=== PATIENT | male | born 1950 ===

== ENCOUNTER → 2020-04-04 | Outpatient (CLI) | payer MEDICARE, OTHER | LOC: CARD 11:00 | PROVIDERS: ATTEND Internal Medicine Interventional Cardiology | DX: I48.0 Paroxysmal atrial fibrillation (principal); I45.6 Pre-excitation syndrome; Z86.79 Personal history of other diseases of the circulatory system | CPT/HCPCS: 93306 ==

== ENCOUNTER 2023-03-15 13:25 | Observation (INO) | payer MEDICARE, OTHER ==
[~2023-03-15] VITALS: Ht 177.8 cm; Wt 70.9 kg
[2023-03-15] MEDS ORDERED: ACETAMINOPHEN 325 MG TABLET PO PRN (16:00)
[2023-03-15] MEDS ORDERED: diphenhydrAMINE 25 MG TABLET PO PRN (16:00)
[2023-03-15] MEDS ORDERED: ONDANSETRON 4 MG/2 ML (SDV) Z0FRAN IV PRN (16:00)
[2023-03-15] MEDS ORDERED: oxyCODONE IMMEDIATE RELEASE 5 MG TABLET PO PRN (16:00)
[2023-03-15] MEDS ORDERED: polyethylene glycoL POWDER 17 GM (MIRALAX) PACK PO PRN (16:00)
[2023-03-15] MEDS ORDERED: ANTACID SUSPENSION 30 ML UDC PO PRN (16:00)
[2023-03-15] MEDS ORDERED: MILK OF MAGNESIA 400 MG/5 ML 30 ML UDC PO PRN (16:00)
[2023-03-15] MEDS ORDERED: BISACODYL 10 MG SUPPOSITORY PR PRN (16:00)
[2023-03-15] MEDS ORDERED: ONDANSETRON 4 MG (ZOFRAN) ORAL DISSOLVE TAB PO PRN (16:00)
[2023-03-15] MEDS ORDERED: HYDROmorphone INJECTION 2 MG/ML VIAL IV PRN (16:00)
[2023-03-15] MEDS ORDERED: CALCIUM CARBONATE 500 MG CHEW TABLET PO PRN (16:00)
[2023-03-15] MEDS ORDERED: NS IV 500 ML 500 ML IV PRN (16:00)
[2023-03-15] MEDS ORDERED: diphenhydrAMINE INJ 50 MG/ML VIAL IVP PRN (16:00)
[2023-03-15] MEDS ORDERED: MELATONIN 3 MG TABLET PO PRN (16:00)
[2023-03-15] MEDS ORDERED: LACTULOSE SYRUP 10GM/15ML 30ML UDC PO PRN (16:00)
[2023-03-15] MEDS: inSUlin ASPART 1 UNIT/0.01 ML (PER UNIT) SC SCH ×2 (16:18→21:08)
[2023-03-15] MEDS: NS IV 1000 ML 1,000 ML IV SCH (17:29)
[2023-03-15] MEDS: ENOXAPARIN 40 MG/0.4 ML SYRINGE SC SCH (17:29)
--- NOTE | 2023-03-15 17:55 | Diagnostic Imaging Report ---
PROCEDURE: US carotid duplex, bilateral. TECHNIQUE: Multiple real-time grayscale images were obtained over the carotid arteries in various projections, bilaterally. Additional spectral analysis and color Doppler duplex images were also obtained. INDICATION: Transient ischemic attack. Parameters based on the consensus panel Torres-Scale and Doppler ultrasound criteria published June 2003, Radiology, Volume 229. DOPPLER (peak systolic velocity M/S Right Left CCA 0.86 0.85 ICA Proximal 0.59 0.70 ICA Mid 0.59 0.65 ICA Distal 0.70 0.73 RATIO 0.81 0.97 ECA 0.85 0.95 VERT 0.28 0.41 FINDINGS: Minimal plaque is seen within the distal common carotid arteries bilaterally. Waveforms are normal. There is normal antegrade flow within both vertebral arteries. IMPRESSION: No hemodynamically significant stenosis of the bilateral internal carotid arteries by velocity or ratio criteria. Dictated by: Dictated on workstation # [id number]
[2023-03-15] MEDS ORDERED: NS 100 ML (IVPB) BAG IV ONE (18:00)
[2023-03-15] MEDS ORDERED: IOHEXOL 350 MG/ML 100 ML (OMNIPAQUE 350) VIAL IV ONE (18:00)
--- NOTE | 2023-03-15 18:19 | History & Physical ---
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 He had amnesia and increased confusion so he presented to [facility] ER in stable condition and work-up ensued. CT scan was normal for any acute abnormality and the rest of his blood work showed no evidence of source for confusion and amnesia so the decision was made to transfer to [facility] for CT angiogram to rule out large thrombus and MRI. Currently he is doing much better but he is having still some mild confusion. Patient was placed on Plavix and aspirin per protocol. Carotid ultrasound showed no evidence of stenosis. CT angiogram showed no evidence of large thr ombus. He will be monitored in the ICU. Cardiology did evaluate him due to history of ablation and pacemaker defibrillator placement 2 years ago at . 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 Source: patient, family, RN/MD, old records Exam Limitations: no limitations Date Seen 03/15/23 Time Seen by a Provider: 19:00 Attending Physician Seferino Olson DO PCP Admitting Physician: Deya Bailon DO Attending Physician: Deya Bailon DO Referring Physician Date of Admission Mar 15, 2023 at 15:53 Home Medications & Allergies Home Medications Reviewed patient Home Medication Reconciliation performed by pharmacy medication reconciliations hearing health technician and/or nursing. Patients Allergies have been reviewed. Allergies Allergies Coded Allergies No Allergy Information Available (Unverified03/15/23) Past Gqmspns-Qddsqr-Qudqou Hx Past Med/Social Hx: Reviewed Nursing Past Med/Soc Hx, Reviewed and Corrections made Patient Social History Marrital Status: Employed/Student: employed (Park Manager) Alcohol Use: Denies Use Smoking Status: Former Smoker Past Medical History Surgeries: Pacemaker WPW status post ablation Review of Systems Constitutional: see HPI, dizziness, malaise, weakness EENTM: no symptoms reported Respiratory: no symptoms reported Cardiovascular: no symptoms reported Gastrointestinal: no symptoms reported Genitourinary: no symptoms reported Musculoskeletal: no symptoms reported Skin: no symptoms reported Psychiatric/Neurological: Other (Confusion and poor recall) Physical Exam Physical Exam Vital Signs Vital Signs - First Documented 03/15/23 21:38 FiO2 21 Capillary Refill : Height, Weight, BMI Height: '" Weight: lbs. oz. kg; 22.23 BMI Method: General Appearance: No Apparent Distress, WD/WN Eyes: Bilateral Eye Normal Inspection, Bilateral Eye PERRL HEENT: PERRL/EOMI, Normal ENT Inspection, Pharynx Normal Neck: Full Range of Motion, Normal Inspection, Non Tender, Supple, Carotid Bruit Respiratory: Chest Non Tender, Lungs Clear, Normal Breath Sounds, No Accessory Muscle Use, No Respiratory Distress Cardiovascular: Regular Rate, Rhythm, No Edema, No Gallop, No JVD, No Murmur, Normal Peripheral Pulses Gastrointestinal: Normal Bowel Sounds, No Organomegaly, No Pulsatile Mass, Non Tender, Soft Back: Normal Inspection, No CVA Tenderness, No Vertebral Tenderness Extremity: Normal Capillary Refill, Normal Inspection, Normal Range of Motion, Non Tender, No Calf Tenderness, No Pedal Edema Neurologic/Psychiatric: Alert, Oriented x3, No Motor/Sensory Deficits, Normal Mood/Affect, neonatal doctor II-XII Norm as Tested, Other ( poor recall) Skin: Normal Color, Warm/Dry Lymphatic: No Adenopathy Results Results/Procedures Labs Laboratory Tests 03/16/23 04:32 Patient resulted labs reviewed. Assessment/Plan Admission Diagnosis Assessment: Acute onset of confusion and amnesia due to TIA versus CVA History of ablation and pacemaker defibrillator placement 2 years ago due to WPW managed to [employer] Plan: Supportive care Plavix and aspirin Plavix and aspirinCarotid, CT angiogram, MRI, echo, telemetry, rehab eval Admission Status: Observation DEYA BAILON DO Mar 15, 2023 18:19
--- NOTE | 2023-03-15 18:28 | Tele-ICU Progress Note ---
Progress Note (Tele-ICU Physician , consultation as per request of PCP Service provided via interactive audio and video telecommunications E-CARE system to a patient admitted to ICU bed in [facility]. Available chart/ vitals / labs / Images reviewed H&P is from ER notes Patient's information available about PMH, Shx, Fhx allergy reviewed inEMR. ROS as per chart and RN report Now in ICU, hemodynamically stable Video assessment done using teleICU camera, rest of exam as per RN no labs on EMR yest Hospital course: (03/15) 72y/o M admitted with TIA A/P TIA - plavix strarted cards consulted , ECHO and CTA ordered , carotids US - no stenosis monitor BP neurocheck h/o afib in past - as per cards - not on AC now Plans in collaboration with bedside consultants and IM MDs. Discussed with RN to reach out if any questions or concerns A total of 10 minutes of critical care time was devoted to this patient today, required to treat and/or prevent further deterioration of critical care condition ( as above ) . I am remotely monitoring this patient from another state. I am unable to do the bedside exam, and history/physical and pertinent information is taken from other notes in the computer and bedside staff. . Focused Exam Height, Weight, BMI Height: '" Weight: lbs. oz. kg; 22.23 BMI Method: AMANDA GRANT MD Mar 15, 2023 18:27
--- NOTE | 2023-03-15 19:23 | Diagnostic Imaging Report ---
EXAMINATION: CT angiography head and neck with and without contrast. TECHNIQUE: After intravenous administration of contrast, thin section axial CT angiography of the head and neck was performed. Source data was reformatted into 3D MIP projections. All CT scans use one or more of the following dose optimizing techniques: automated exposure control, MA and/or KvP adjustment based on a patient size and exam type, or iterative reconstruction. Any measurements of internal carotid artery stenosis are provided according to NASCET criteria. CT angiogram was post-processed using AI detection software to include quantitative measurements of cerebral blood flow and automated results notification to the stroke and/or neurointerventional team. HISTORY: History of skin cancer, stroke. COMPARISON: None available. FINDINGS: The carotid arteries are normal without stenosis. Vertebral arteries are normal without stenosis. Intracranial internal carotid arteries are normal. The middle cerebral arteries are normal. The posterior cerebral arteries are normal. The anterior cerebral arteries are normal. There is no large vessel occlusion. No aneurysm or vascular malformation is seen. The cat-white matter differentiation is normal. No mass effect or midline shift. The ventricles are normal in size and configuration. Basilar cisterns are patent. There are no intra- or extra-axial fluid collections. There is no intracranial hemorrhage. The orbits are normal. Paranasal sinuses are normal. Mastoid air cells are clear. No soft tissue abnormality is seen. No osseus lesions or fractures are seen. No lymphadenopathy is seen in the neck. The muscles of the neck are normal. Fascial planes are preserved and the deep spaces of the neck are normal. Included lung apices demonstrate biapical scarring. No osseous lesions or fractures are seen. IMPRESSION: 1. Normal vasculature in the head and neck without large vessel occlusion. Dictated by: Dictated on workstation # [id number]
--- NOTE | 2023-03-15 19:24 | Consultation-Cardiology ---
HPI-Cardiology Cardiology Consultation: Date of Consultation 03/15/23 Time Seen by a Provider: 18:15 Date of Admission Attending Physician Seferino Olson DO Admitting Physician Admitting Physician: Deya Bailon DO Attending Physician: Deya Bailon DO Consulting Physician KALLIE FARFAN MD, MA, FACP, FACC, [facility], [facility] Physician requesting consult: Dr Bailon HPI: Chief Complaint: Reason for Card consult: H/o cardiac arrhythmia 72 [address] man admitted to Dr Bailon's service earlier today with several hours of confusion, forgetfulness, and disorientation Denies cp or palp or shortness of breath or leg swelling. Denies n/v/d. Denies focal weakness. Denies vision loss Review of Systems-Cardiology Review of Systems Constitutional: No malaise, No tiredness, No weight loss, No weight gain Eyes: No vision change Ears/Nose/Throat: No ear discharge, No nasal drainage, No recent hearing loss Respiratory: As described under HPI Cardiovascular: As described under HPI Gastrointestinal: No diarrhea, No nausea Genitourinary: No dysuria, No hematuria, No urine frequency changes Musculoskeletal: No back pain, No joint pain Skin: No rash, No ulcerations Psychiatric/Neurological: As described under HPI; No seizure, No focal weakness, No syncope Hematologic: No bleeding abnormalities CMN-Hctmux-Uenlaf Hx Patient Social History Smoking Status: Former Smoker Alcohol Use?: Yes Pt feels they are or have been: No Past Medical History PMH As described under Assessment. Family Medical History Family Medical History: He does not report fam h/o early CAD or SCD Allergies and Home Medications Allergies Coded Allergies: No Allergy Information Available (Unverified , 03/15/23) Patient Home Medication List Home Medication List Reviewed: Yes Physical Exam-Cardiology Physical Exam Vital Signs/I&O 03/15/23 03/15/23 03/15/23 03/15/23 16:00 16:00 16:37 17:00 Temp 37.1 Pulse 61 59 59 Resp 18 16 B/P (MAP) 145/94 (111) 137/87 (104) Pulse Ox 99 99 O2 Delivery Room Air Room Air Room Air Capillary Refill : Constitutional: AAO x 3, well-developed, well-nourished HEENT: EOMI, hearing is well preserved; No xanthelasmas are seen Neck: carotid pulses are 2 + bilaterally, with good upstrokes Respiratory: No accessory muscle use; chest expansion is symmetric, chest is bilaterally symmetric, other (good, bilateral air entry) Cardiovascular: No regular rate-rhythm; S1 and S2, systolic murmur (soft ARPITA at card base) Gastrointestinal: No tender; soft; No guarding, No rebound; audible bowel sounds Extremities: No clubbing, No cyanosis, No significant edema Neurologic/Psychiatric: oriented x 3, other (moves all limbs equally) Skin: normal color, warm/dry; No cyanosis, No cool, No diaphoresis, No rash on exposed areas, No ulcerations on exposed areas A/P-Cardiology Assessment/Admission Diagnosis Mental status change, acute - managed by Dr Bailon H/o cardiac arrhythmia - 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 - H/o ablation of another fast heart rhythm in a few years ago (pt and family do not know any details) - H/o pacemaker defibrillator in a few years ago (pt and family do not know a ny details) - No h/o cardiomyopathy or cor stents or cor bypass surgery, per patient report Discussion and Recomendations * We have advised pt and his family to bring all his meds and we recommend that any previous cardiac regimen be continued (Dr Bailon managing meds) * We are trying to obtain 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
[2023-03-15] MEDS ORDERED: ASPIRIN enteric coated 81MG TABLET PO ONE (21:00)
[2023-03-15] MEDS: CLOPIDOGREL 75 MG TABLET PO SCH (21:23)
[2023-03-15 21:38] VITALS: BP 143/113
[2023-03-15] MEDS: DOCUSATE SODIUM 100 MG CAPSULE PO SCH (23:38)
[2023-03-15] MEDS: SENNOSIDES 8.6 MG (SENOKOT) TAB PO SCH (23:39)
[2023-03-16 05:08] LABS: BASOPHILS # (AUTO) 0.1 10^3/uL (0.0-0.1); BASOPHILS % (AUTO) 1 % (0-10); EOSINOPHILS # (AUTO) 0.1 10^3/uL (0.0-0.3); EOSINOPHILS % (AUTO) 1 % (0-10); HEMATOCRIT 39 % (40-54); HEMOGLOBIN 13.7 g/dL (13.3-17.7); LYMPHOCYTES # (AUTO) 1.6 10^3/uL (1.0-4.0); LYMPHOCYTES % (AUTO) 30 % (12-44); MEAN CORPUSCULAR HEMOGLOBIN 34 pg (25-34); MEAN CORPUSCULAR HGB CONC 35 g/dL (32-36); MEAN CORPUSCULAR VOLUME 97 fL (80-99); MEAN PLATELET VOLUME 12.6 fL (9.0-12.2); MONOCYTES # (AUTO) 0.5 10^3/uL (0.0-1.0); MONOCYTES % (AUTO) 10 % (0-12); NEUTROPHILS % (AUTO) 58 % (42-75); WHITE BLOOD COUNT 5.3 10^3/uL (4.3-11.0)
[2023-03-16 05:25] LABS: ALBUMIN 3.5 GM/DL (3.2-4.5); BILIRUBIN,TOTAL 1.7 MG/DL (0.1-1.0); CALCIUM 8.5 MG/DL (8.5-10.1); CREATININE SERUM 0.82 MG/DL (0.60-1.30); MAGNESIUM 1.8 MG/DL (1.6-2.4); PHOSPHORUS 2.8 MG/DL (2.3-4.7); POTASSIUM 3.6 MMOL/L (3.6-5.0); TOTAL PROTEIN 5.2 GM/DL (6.4-8.2)
[2023-03-16 05:43] LABS: PLATELET COUNT 104 10^3/uL (130-400); SMEAR SCAN COMMENT YES
[2023-03-16] MEDS ORDERED: MAGNESIUM 1 GM/100 ML IVPB 100 ML IV SCH (06:00)
[2023-03-16] MEDS ORDERED: POTASSIUM CHLORIDE 20 MEQ TABLET PO SCH (06:00)
[2023-03-16] MEDS ORDERED: POTASSIUM CL 10MEQ/50ML IVPB 50 ML IV SCH (06:00)
[2023-03-16] MEDS: inSUlin ASPART 1 UNIT/0.01 ML (PER UNIT) SC SCH (06:33)
[2023-03-16] MEDS: MAGNESIUM 1 GM/100 ML IVPB 100 ML IV SCH ×2 (06:45→08:54)
[2023-03-16] MEDS: NS IV 1000 ML 1,000 ML IV SCH (06:45)
--- NOTE | 2023-03-16 08:36 | Physical Therapy Evaluation ---
PT Evaluation-General Medical Diagnosis Admission Date Mar 15, 2023 at 15:53 Medical Diagnosis: TIA Onset Date: Mar 15, 2023 Therapy Diagnosis Therapy Diagnosis: debility Precautions Precautions/Isolations: Fall Prevention, Standard Precautions Referral Physician: Adamaris Reason for Referral: Evaluation/Treatment Medical History Additional Medical History pacemaker Current History ER secondary to confusion Reviewed History: Yes Social History Home: Single Level Current Living Status: Spouse Prior Prior Level of Function SCALE: Activities may be completed with or without assistive devices. 6-Dmheupibgr-qxcqrga completes the activity by him/herself with no assistance from a helper. 5-Set-up or Clean-up Assistance-helper sets up or cleans up; patient completes activity. [place] assists only prior to or following the activity. 4-Supervision or Touching Assistance-helper provides verbal cues and/or touching/steadying and/or contact guard assistance as patient completes activity. Assistance may be provided throughout the activity or intermittently. 3-Partial/Moderate Assistance-helper does LESS THAN HALF the effort. [place] li fts, holds or supports trunk or limbs, but provides less than half the effort. 2-Substantial/Maximal Assistance-helper does MORE THAN HALF the effort. [place] lifts or holds trunk or limbs and provides more than half the effort. 4-Jehjlgrnu-zzbptc does ALL the effort. Patient does none of the effort to complete the activity. Or, the assistance of 2 or more helpers is required for the patient to complete the activity. If activity was not attempted, code reason: 7-Patient Refused. 9-Not Applicable-not attempted and the patient did not perform the activity before the current illness, exacerbation or injury. 10-Not Attempted due to Environmental Limitations-(lack of equipment, weather restraints, etc.). 88-Not Attempted due to Medical Conditions or Safety Concerns. Bed Mobility: 6 Transfers (B,C,W/C): 6 Gait: 6 Stairs: 6 Indoor Mobility (Ambulation): Independent Stairs: Independent Prior Devices Use: None PT Evaluation-Current Subjective Patient agrees to PT. Objective Patient Orientation: Normal For Age Attachments: IV ROM/Strength ROM Lower Extremities bilateral LE WFL Strength Lower Extremities 5/5 grossly bilateral LE all planes Integumentary/Posture Bowel Incontinence: No Bladder Incontinence: No Posture WFL Neuromuscular (Tone, Coordination, Reflexes) grossly intact Sensory Vision: Functional Hearing: Functional Transfers Sit to Stand (QC): 6 Chair/Fwd-ez-Clvlu Xfer(QC): 6 Gait Mode of Locomotion: Walk Anticipated Mode of Locomotion: Walk Walk 10 feet (QC): 6 Walk 50 ft with 2 Turns(QC): 6 Distance: 50' Gait Assistive Device: None Balance Sitting Static: Normal Sitting Dynamic: Normal Standing Static: Normal Standing Dynamic: Normal Assessment/Needs Patient is currently at independent PLOF with all gross motor skills safely and does not require skilled PT intervention at this time. Rehab Potential: Good PT Plan Treatment/Plan Treatment Plan: Discontinue PT Treatment Duration: Mar 16, 2023 Frequency: 1 time per week Estimated Hrs Per Day: .25 hour per day Patient and/or Family Agrees t: Yes Time Time In: 810 Time Out: 820 DATE: Mar 16, 2023 Total Billed Treatment Time: 10 Total Billed Treatment 1 visit EVLowC 10 min EUGENIA JACKSON PT Mar 16, 2023 08:36
[2023-03-16] MEDS: CLOPIDOGREL 75 MG TABLET PO SCH (08:54)
[2023-03-16] MEDS: ASPIRIN enteric coated 81MG TABLET PO SCH (08:54)
[2023-03-16] MEDS ORDERED: CLOPIDOGREL 75 MG TABLET PO SCH (09:00)
[2023-03-16] MEDS ORDERED: ASPIRIN 325 MG TABLET PO SCH (09:00)
--- NOTE | 2023-03-16 10:08 | Progress Note - Cardiology ---
Cardiology SOAP Progress Note Objective: I&O/Vital Signs Constitutional: AAO x 3, well-developed, well-nourished Respiratory: No accessory muscle use; chest expansion is symmetric, chest is bilaterally symmetric, other (good, bilateral air entry) Cardiovascular: No regular rate-rhythm; S1 and S2, systolic murmur (soft ARPITA at card base) Gastrointestional: No tender; soft; No guarding, No rebound; audible bowel sounds Extremities: No clubbing, No cyanosis, No significant edema Neurologic/Psychiatric: oriented x 3, other (moves all limbs equally) Skin: normal color, warm/dry; No cyanosis, No cool, No diaphoresis, No rash on exposed areas, No ulcerations on exposed areas Results/Procedures: Labs Microbiology 03/15/23 MRSA Screen - Final, Complete MRSA not isolated A/P: Assessment: Mental status change, acute - managed by Dr Bailon H/o cardiac arrhythmia - 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
[2023-03-16] MEDS: DOCUSATE SODIUM 100 MG CAPSULE PO SCH ×2 (10:10→20:08)
[2023-03-16] MEDS: SENNOSIDES 8.6 MG (SENOKOT) TAB PO SCH ×2 (10:10→20:08)
--- NOTE | 2023-03-16 10:25 | Speech Therapy Progress Note ---
Therapy Progress Note Per PT: Patient is independent with all communicative-linguistic tasks. Pt currently has regular diet level. Communication WNL. Pt and nursing staff have no ST concerns at this time. Consult only on this date. DUKE SPICER Mar 16, 2023 10:25
[2023-03-16] MEDS ORDERED: LORA10TA7 PO (10:36)
[2023-03-16] MEDS ORDERED: FINA5TAB6 PO (10:36)
[2023-03-16] MEDS ORDERED: SOTA120T PO (10:36)
[2023-03-16] MEDS ORDERED: FLUT9.9S NSEACH (10:36)
[2023-03-16] MEDS ORDERED: MULT-1136 PO (10:36)
[2023-03-16] MEDS ORDERED: ATOR40TA70 PO (10:36)
[2023-03-16] MEDS ORDERED: LACT1CAP62 PO (10:36)
--- NOTE | 2023-03-16 11:07 | Progress Note ---
WEN ENRIQUEZ 03/16/23 1107: Subjective Date Seen by a Provider: Mar 16, 2023 Time Seen by a Provider: 09:10 Subjective/Events-last exam CC: TIA vs CVA HPI: 72-year-old male with h/o of WPW became confused & did not feel well yesterday. Proceeded to have amnesia and increasing confusion so presented to [place] ER. CT scan showed no acute abnormality and blood tests provided no evidence for confusion. Patient then transferred to [facility] for CT angiogram & an MRI. No large thrombus found with CT angiogram. No carotid stenosis found on carotid US. He reported no pain or weakness and was able to get up and move around a bit this morning. He was able to state name and lo cation, but was unable to give date (oriented x2). Patient will be [facility] to [facility] and further requirement of an MRI will be discussed. Patient is currently on clopidogrel & aspirin as per protocol. Review of Systems General: No Chills, No Night Sweats, No Fatigue, No Malaise HEENT: Head Aches (Headache this morning but went away with coffee); No Visual Changes, No Eye Pain, No Ear Pain, No Dysphasia, No Sinus Congestion, No Post Nasal Drip, No Sore Throat, No Other Pulmonary: No Dyspnea, No Cough, No Pleuritic Chest Pain Cardiovascular: No: Chest Pain, Palpitations, Orthopnea, Paroxysmal Noc. Dyspnea, Edema, Lt Headedness Gastrointestinal: No: Nausea, Vomiting, Abdominal Pain, Diarrhea, Constipation, Melena, Hematochezia Genitourinary: No Dysuria; Frequency; No Incontinence, No Hematuria, No Retention, No Other Musculoskeletal: No: other, neck pain, shoulder pain, arm pain, back pain, hand pain, leg pain, foot pain Neurological: Weakness (Was able to move around some this morning), Confusion (Did not know date, Oriented x2); No: Numbness, Incoordination, Change in speech, Seizures, Other Objective Exam Last Set of Vital Signs Vital Signs Date Time Temp Pulse Resp B/P (MAP) Pulse Ox O2 Delivery O2 Flow Rate FiO2 03/16/23 09:00 59 19 100 Room Air 03/16/23 07:55 36.2 03/16/23 07:16 0.00 03/15/23 21:42 21 Capillary Refill : I&O Intake and Output 03/16/23 00:00 Intake Total 925 ml Output Total 600 ml Balance 325 ml Intake Oral 925 ml Output Urine Total 600 ml Daily Weight Change No General: Alert, Cooperative, No Acute Distress, Other (Oriented x2) HEENT: Atraumatic, PERRLA, EOMI Extremities: No Clubbing, No Cyanosis Neuro: Normal Speech Psych/Mental Status: Mental Status NL, Mood NL Results Lab Laboratory Tests 03/15/23 20:30: Glucometer 102 03/16/23 04:32: White Blood Count 5.3, Red Blood Count 4.02L, Hemoglobin 13.7, Hematocrit 39L, Mean Corpuscular Volume 97, Mean Corpuscular Hemoglobin 34, Mean Corpuscular Hemoglobin Concent 35, Red Cell Distribution Width 12.1, Platelet Count 104L, Mean Platelet Volume 12.6H, Immature Granulocyte % (Auto) 0, Neutrophils (%) (Auto) 58, Lymphocytes (%) (Auto) 30, Monocytes (%) (Auto) 10, Eosinophils (%) (Auto) 1, Basophils (%) (Auto) 1, Neutrophils # (Auto) 3.0, Lymphocytes # (Auto) 1.6, Monocytes # (Auto) 0.5, Eosinophils # (Auto) 0.1, Basophils # (Auto) 0.1, Immature Granulocyte # (Auto) 0.0, Percent Immature Platelet Fraction 12.1H, Sodium Level 140, Potassium Level 3.6, Chloride Level 110H, Carbon Dioxide Level 23, Anion Gap 7, Blood Urea Nitrogen 10, Creatinine 0.82, Estimat Glomerular Filtration Rate 94, BUN/Creatinine Ratio 12, Glucose Level 89, Calcium Level 8.5, Corrected Calcium 8.9, Phosphorus Level 2.8, Magnesium Level 1.8, Total Bilirubin 1.7H, Aspartate Amino Transf (AST/SGOT) 23, Alanine Aminotransferase (ALT/SGPT) 26, Alkaline Phosphatase 55, Total Protein 5.2L, Albumin 3.5, Triglycerides Level 95, Cholesterol Level 101, LDL Cholesterol Direct 46, VLDL Cholesterol 19, HDL Cholesterol 41, Smear Scan YES 03/16/23 05:25: Glucometer 87 03/16/23 10:38: Glucometer 102 Assessment/Plan Assessment/Plan Assess & Plan/Chief Complaint Assessment: Acute onset of confusion & amnesia due to TIA vs CVA Prior ablation & pacemaker defib placement 2 years ago for WPW Plan: Continue DAPT per protocol Atorvastatin Lorazepam Move to med-surg & ambulate MRI if needed Heplock d/c IVF DEYA GUIDRY DO 03/17/2318: Supervisory-Addendum Brief Verification & Attestation Participated in pt care: history, MDM, physical Personally performed: exam, history, MDM, supervision of care Care discussed with: Medical Student Procedures: n/a Results interpretation: Verified all documentation Verification and Attestation of Medical Student E/M Service A medical student performed and documented this service in my presence. I reviewed and verified all information documented by the medical student and made modifications to such information, when appropriate. I personally performed the physical exam and medical decision making. Deya Guidry, Mar 17, 2023,05:18 WEN ENRIQUEZ Mar 16, 2023 11:07 DEYA GUIDRY DO Mar 17, 2023 05:18
--- NOTE | 2023-03-16 12:25 | Tele-ICU Progress Note ---
Subjective Date Seen by a Provider: Mar 16, 2023 Time Seen by a Provider: 12:24 Subjective/Events-last exam HPI/Events of Note (Tele-ICU Physician , Progress Note ) Service provided via interactive audio and video telecommunications E-CARE system to a patient admitted to ICU bed in [facility]. Patient is seen today due to persistent need of ICU care. Available chart/ vitals / labs / Images reviewed Video assessment done using teleICU camera, rest of exam as per RN Hospital course: (03/15) 72 y/o M admitted with TIA and AMS 03/16: A&OX3, no events overnight A/P TIA Initial NIH was 2 (confusion), today with no active issues -MRI held 2/ pacemaker -Plavix strarted -cards consulted , ECHO pending -CTA normal, carotids US - no stenosis -BP normal -neurocheck Q4 h/o afib in past - as per cards - not on AC now Plans in collaboration with bedside consultants and IM MDs. Discussed with RN to reach out if any questions or concerns A total of 10 minutes of critical care time was devoted to this patient today, required to treat and/or prevent further deterioration of critical care condition (as above). I am remotely monitoring this patient from another state. I am unable to do the bedside exam, and history/physical and pertinent information is taken from other notes in the computer and bedside staff. Sepsis Event Evaluation Height, Weight, BMI Height: '" Weight: lbs. oz. kg; 22.23 BMI Method: Exam Exam Patient acknowledged, consented, and participated in this virtual visit which was conducted using real time audio/video Vital Signs Date Time Temp Pulse Resp B/P (MAP) Pulse Ox O2 Delivery O2 Flow Rate FiO2 03/16/23 11:32 36.2 03/16/23 11:00 64 14 139/98 (112) Room Air 03/16/23 10:00 64 14 Room Air 03/16/23 10:00 55 15 Room Air 03/16/23 09:00 59 19 100 Room Air 03/16/23 08:00 97 Room Air 03/16/23 08:00 56 15 173/104 (127) 100 Room Air 03/16/23 07:55 36.2 03/16/23 07:16 98 Room Air 0.00 03/16/23 07:00 61 18 136/93 (107) 98 Room Air 03/16/23 07:00 58 03/16/23 06:00 55 11 142/77 (95) 98 Room Air 03/16/23 05:00 55 11 118/79 (95) 97 Room Air 03/16/23 04:00 98 Room Air 03/16/23 04:00 59 19 120/86 (98) 96 Room Air 03/16/23 03:00 55 11 120/82 (95) 98 Room Air 03/16/23 02:00 55 32 125/78 (94) 96 Room Air 03/16/23 01:30 98 Room Air 03/16/23 01:00 55 12 113/77 (89) 98 Room Air 03/16/23 01:00 55 03/16/23 00:14 97 Room Air 03/16/23 00:00 56 13 127/82 (97) 99 Room Air 03/15/23 23:00 55 14 119/83 (99) 97 Room Air 03/15/23 22:00 58 125/94 (104) 99 Room Air 03/15/23 21:42 21 03/15/23 21:38 59 99 21 03/15/23 21:05 60 9 136/94 (120) 99 Room Air 03/15/23 20:05 37.0 03/15/23 20:00 96 Room Air 03/15/23 20:00 57 11 143/113 (121) 100 Room Air 03/15/23 19:00 58 03/15/23 19:00 68 12 177/97 (133) 99 Room Air 03/15/23 17:00 59 16 137/87 (104) 99 Room Air 03/15/23 16:37 59 03/15/23 16:00 Room Air 03/15/23 16:00 37.1 61 18 145/94 (111) 99 Room Air I & O 03/16/23 07:00 Intake Total 925 ml Output Total 600 ml Balance 325 ml Height & Weight Height: '" Weight: lbs. oz. kg; 22.23 BMI Method: General Appearance: No Apparent Distress, WD/WN HEENT: PERRL/EOMI, Normal ENT Inspection, Pharynx Normal Neck: Full Range of Motion, Normal Inspection, Non Tender, Supple, Carotid Bruit Respiratory: Chest Non Tender, Lungs Clear, Normal Breath Sounds, No Accessory Muscle Use, No Respiratory Distress Cardiovascular: Regular Rate, Rhythm, No Edema, No Gallop, No JVD, No Murmur, Normal Peripheral Pulses Extremity: Normal Capillary Refill, Normal Inspection, Normal Range of Motion, Non Tender, No Calf Tenderness, No Pedal Edema Neurologic/Psychiatric: Alert, Oriented x3, No Motor/Sensory Deficits, Normal Mood/Affect, java web architect II-XII Norm as Tested, Other ( poor recall) Skin: Normal Color, Warm/Dry Lymphatic: No Adenopathy Results Lab Laboratory Tests 03/16/23 04:32 Assessment/Plan Assessment/Plan . SABRA GARG MD Mar 16, 2023 12:25
--- NOTE | 2023-03-16 16:07 | Progress Note - Cardiology ---
Cardiology SOAP Progress Note Subjective: No cp or palp or syncope or shortness of breath No leg swelling No n/v/d Reports improvement of memory since yesterday Objective: I&O/Vital Signs 03/16/23 03/16/23 03/16/23 03/16/23 05:00 06:00 07:00 07:00 Pulse 55 55 58 61 Resp 11 11 18 B/P (MAP) 118/79 (95) 142/77 (95) 136/93 (107) Pulse Ox 97 98 98 O2 Delivery Room Air Room Air Room Air 03/16/23 03/16/23 03/16/23 03/16/23 07:16 07:55 08:00 08:00 Temp 36.2 Pulse 56 Resp 15 B/P (MAP) 173/104 (127) Pulse Ox 98 100 97 O2 Delivery Room Air Room Air Room Air O2 Flow Rate 0.00 03/16/23 03/16/23 03/16/23 03/16/23 09:00 10:00 10:00 11:00 Pulse 59 55 64 64 Resp 19 15 14 14 B/P (MAP) 139/98 (112) Pulse Ox 100 O2 Delivery Room Air Room Air Room Air Room Air 03/16/23 03/16/23 11:32 12:00 Temp 36.2 Pulse Ox 97 O2 Delivery Room Air 03/16/23 00:00 Intake Total 925 ml Output Total 600 ml Balance 325 ml Constitutional: AAO x 3, well-developed, well-nourished Respiratory: No accessory muscle use; chest expansion is symmetric, chest is bilaterally symmetric, other (good, bilateral air entry) Cardiovascular: No regular rate-rhythm; S1 and S2, systolic murmur (soft ARPITA at card base) Gastrointestional: No tender; soft; No guarding, No rebound; audible bowel sounds Extremities: No clubbing, No cyanosis, No significant edema Neurologic/Psychiatric: oriented x 3, other (moves all limbs equally) Skin: normal color, warm/dry; No cyanosis, No cool, No diaphoresis, No rash on exposed areas, No ulcerations on exposed areas Results/Procedures: Labs Laboratory Tests 03/15/23 20:30: Glucometer 102 03/16/23 04:32: White Blood Count 5.3, Red Blood Count 4.02L, Hemoglobin 13.7, Hematocrit 39L, Mean Corpuscular Volume 97, Mean Corpuscular Hemoglobin 34, Mean Corpuscular Hemoglobin Concent 35, Red Cell Distribution Width 12.1, Platelet Count 104L, Mean Platelet Volume 12.6H, Immature Granulocyte % (Auto) 0, Neutrophils (%) (Auto) 58, Lymphocytes (%) (Auto) 30, Monocytes (%) (Auto) 10, Eosinophils (%) (Auto) 1, Basophils (%) (Auto) 1, Neutrophils # (Auto) 3.0, Lymphocytes # (Auto) 1.6, Monocytes # (Auto) 0.5, Eosinophils # (Auto) 0.1, Basophils # (Auto) 0.1, Immature Granulocyte # (Auto) 0.0, Percent Immature Platelet Fraction 12.1H, Sodium Level 140, Potassium Level 3.6, Chloride Level 110H, Carbon Dioxide Level 23, Anion Gap 7, Blood Urea Nitrogen 10, Creatinine 0.82, Estimat Glomerular Filtration Rate 94, BUN/Creatinine Ratio 12, Glucose Level 89, Calcium Level 8.5, Corrected Calcium 8.9, Phosphorus Level 2.8, Magnesium Level 1.8, Total Bilirubin 1.7H, Aspartate Amino Transf (AST/SGOT) 23, Alanine Aminotransferase (ALT/SGPT) 26, Alkaline Phosphatase 55, Total Protein 5.2L, Albumin 3.5, Triglycerides Level 95, Cholesterol Level 101, LDL Cholesterol Direct 46, VLDL Cholesterol 19, HDL Cholesterol 41, Smear Scan YES 03/16/23 05:25: Glucometer 87 03/16/23 10:38: Glucometer 102 Microbiology 03/15/23 MRSA Screen - Final, Complete MRSA not isolated Laboratory Tests 03/16/23 04:32 A/P: Assessment: Mental status change, acute - Transient global amnesia syndrome vs TIA vs CVA - managed by Dr Bailon H/o cardiac arrhythmia - 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 - H/o ablation of another fast heart rhythm in a few years ago (pt and family do not know any details) - H/o pacemaker defibrillator in a few years ago (pt and family do not know any details) - No h/o cardiomyopathy or cor stents or cor bypass surgery, per patient report - Echo of 03/16/23: LVEF 60-65%, no wall motion abnormality, moderately dilated right heart and inferior vena cava, mild MR, mod TR, PASP 40-45 mmHg - ?RV dysplasia (based on echo findings and h/o ICD) - have not able to get records from [facility]: * We advise continuation of previous cardiac regimen * We are still trying to obtain cardiac records from patient's reading coach in [place] * Monitor labs * Keep on tele * Advised f/u with his regular reading coach upon d/c KALL[facility]FAN [facility] CCDS Mar 16, 2023 16:07
[2023-03-16 16:20] VITALS: BP 132/83
[2023-03-16] MEDS: ENOXAPARIN 40 MG/0.4 ML SYRINGE SC SCH (17:38)
[2023-03-16 20:49] VITALS: BP 113/74
[2023-03-16] MEDS: SOTALOL 80 MG (BETAPACE) TAB PO SCH (21:39)
[2023-03-16 23:48] VITALS: BP 106/68
[2023-03-17 03:37] VITALS: BP 104/67
[2023-03-17 05:42] LABS: NEUTROPHILS % (AUTO) 58 % (42-75)
[2023-03-17 05:45] LABS: BASOPHILS % (AUTO) 1 % (0-10); EOSINOPHILS # (AUTO) 0.1 10^3/uL (0.0-0.3); EOSINOPHILS % (AUTO) 2 % (0-10); HEMATOCRIT 40 % (40-54); HEMOGLOBIN 13.8 g/dL (13.3-17.7); LYMPHOCYTES # (AUTO) 1.4 10^3/uL (1.0-4.0); LYMPHOCYTES % (AUTO) 28 % (12-44); MEAN CORPUSCULAR HEMOGLOBIN 33 pg (25-34); MEAN CORPUSCULAR HGB CONC 35 g/dL (32-36); MEAN CORPUSCULAR VOLUME 96 fL (80-99); MEAN PLATELET VOLUME 12.7 fL (9.0-12.2); MONOCYTES # (AUTO) 0.6 10^3/uL (0.0-1.0); MONOCYTES % (AUTO) 12 % (0-12); NEUTROPHILS # (AUTO) 2.8 10^3/uL (1.8-7.8); PLATELET COUNT 104 10^3/uL (130-400); WHITE BLOOD COUNT 4.9 10^3/uL (4.3-11.0)
[2023-03-17 06:00] LABS: ALBUMIN 3.6 GM/DL (3.2-4.5); BILIRUBIN,TOTAL 1.5 MG/DL (0.1-1.0); CALCIUM 8.6 MG/DL (8.5-10.1); CREATININE SERUM 0.78 MG/DL (0.60-1.30); POTASSIUM 3.8 MMOL/L (3.6-5.0); TOTAL PROTEIN 5.4 GM/DL (6.4-8.2)
[2023-03-17 07:57] VITALS: BP 124/73
[2023-03-17] MEDS: CLOPIDOGREL 75 MG TABLET PO SCH (08:41)
[2023-03-17] MEDS: ASPIRIN enteric coated 81MG TABLET PO SCH (08:41)
[2023-03-17] MEDS: SOTALOL 80 MG (BETAPACE) TAB PO SCH (08:45)
[2023-03-17] MEDS: DOCUSATE SODIUM 100 MG CAPSULE PO SCH (08:46)
[2023-03-17] MEDS: SENNOSIDES 8.6 MG (SENOKOT) TAB PO SCH (08:47)
--- NOTE | 2023-03-17 10:19 | Diagnostic Imaging Report ---
INDICATION: Pre-MRI screening. TIME OF EXAM: 10:15 AM. FINDINGS: A cardiac defibrillator is in place. No definite abandoned leads are identified. The lungs are clear. No infiltrates are seen. There is no effusion or pneumothorax. IMPRESSION: No evidence of abandoned leads. Dictated by: Dictated on workstation # [id number]
[2023-03-17 11:26] VITALS: BP 148/88
[2023-03-17] MEDS ORDERED: LORATADINE 10 MG TABLET PO PRN (11:45)
[2023-03-17] MEDS ORDERED: FLUTICASONE NASAL SPRAY (120 SPRAYS) NS PRN (12:00)
--- NOTE | 2023-03-17 12:34 | Diagnostic Imaging Report ---
PROCEDURE: MR imaging of the brain without contrast. TECHNIQUE: Multiplanar, multisequence MR imaging of the brain was performed without contrast. INDICATION: Memory difficulty. COMPARISON: No prior MRI studies available for comparison. FINDINGS: No diffusion abnormalities identified to suggest acute ischemia. The normal expected flow-voids within the carotid siphons are seen. Ventricles and sulci are within normal limits. There is no sulcal effacement or midline shift. No acute intra-axial or extra-axial hemorrhage is detected. Corpus callosum is unremarkable. The sella and parasellar structures are unremarkable. IMPRESSION: Unremarkable noncontrast MRI of the brain. Dictated by: Dictated on workstation # [id number]
[2023-03-17] MEDS ORDERED: ASPI-1238 PO (13:14)
[2023-03-17] MEDS ORDERED: CLOP75TA28 PO (13:14)
[2023-03-17] MEDS ORDERED: ATOR80TA76 PO (13:14)
--- NOTE | 2023-03-17 13:15 | Discharge Summary ---
Diagnosis/Chief Complaint Date of Admission Mar 15, 2023 at 15:53 Date of Discharge Discharge Date: Mar 17, 2023 Discharge Diagnosis TIA Discharge Summary Discharge Physical Examination Allergies: Coded Allergies: Penicillins (Verified Allergy, Unknown, 03/16/23) Vitals & I&Os Vital Signs Date Time Temp Pulse Resp B/P (MAP) Pulse Ox O2 Delivery O2 Flow Rate FiO2 03/17/23 14:08 03/17/23 11:26 36.3 58 18 99 Room Air 03/17/23 08:44 0.00 03/15/23 21:42 21 General Appearance: Alert, Oriented X3, Cooperative Respiratory: Clear to Auscultation Cardiovascular: Regular Rate Psych/Mental Status: Mental Status NL Hospital Course Was the Problem List Reviewed?: Yes Hospital course: 72-year-old male became confused and felt unwell while [place]. Had increasing confusion and amnesia and presented to [facility] in sable condition where he received a CT scan and blood work that showed no abnormalities or evidence of confusion. He ultimately transferred to [facility] for CT angiogram & MRI. CT angiogram showed no evidence of large thrombus and carotid ultrasound showed no evidence of stenosis. MRI was unremabrkable and a chest x-ray showed no effusion or pneumothorax. Patient was admitted with acute mental status change and determined to have TIA vs CVA with a history of WPW with prior ablation and pacemaker defibrillator placement 2 years ago. During his hospital stay, the patient was treated with aspirin & clopidogrel per protocol and started to feel better with improvement of his confusion. WEN ENRIQUEZ Labs (last 24 hrs) Laboratory Tests 03/15/23 20:30: Glucometer 102 03/16/23 04:32: White Blood Count 5.3, Red Blood Count 4.02L, Hemoglobin 13.7, Hematocrit 39L, Mean Corpuscular Volume 97, Mean Corpuscular Hemoglobin 34, Mean Corpuscular Hemoglobin Concent 35, Red Cell Distribution Width 12.1, Platelet Count 104L, Mean Platelet Volume 12.6H, Immature Granulocyte % (Auto) 0, Neutrophils (%) (Auto) 58, Lymphocytes (%) (Auto) 30, Monocytes (%) (Auto) 10, Eosinophils (%) (Auto) 1, Basophils (%) (Auto) 1, Neutrophils # (Auto) 3.0, Lymphocytes # (Auto) 1.6, Monocytes # (Auto) 0.5, Eosinophils # (Auto) 0.1, Basophils # (Auto) 0.1, Immature Granulocyte # (Auto) 0.0, Percent Immature Platelet Fraction 12.1H, Sodium Level 140, Potassium Level 3.6, Chloride Level 110H, Carbon Dioxide Level 23, Anion Gap 7, Blood Urea Nitrogen 10, Creatinine 0.82, Estimat Glomerular Filtration Rate 94, BUN/Creatinine Ratio 12, Glucose Level 89, Calcium Level 8.5, Corrected Calcium 8.9, Phosphorus Level 2.8, Magnesium Level 1.8, Total Bilirubin 1.7H, Aspartate Amino Transf (AST/SGOT) 23, Alanine Aminotransferase (ALT/SGPT) 26, Alkaline Phosphatase 55, Total Protein 5.2L, Albumin 3.5, Triglycerides Level 95, Cholesterol Level 101, LDL Cholesterol Direct 46, VLDL Cholesterol 19, HDL Cholesterol 41, Smear Scan YES 03/16/23 05:25: Glucometer 87 03/16/23 10:38: Glucometer 102 03/17/23 05:19: White Blood Count 4.9, Red Blood Count 4.15L, Hemoglobin 13.8, Hematocrit 40, Mean Corpuscular Volume 96, Mean Corpuscular Hemoglobin 33, Mean Corpuscular Hemoglobin Concent 35, Red Cell Distribution Width 12.3, Platelet Count 104L, Mean Platelet Volume 12.7H, Immature Granulocyte % (Auto) 0, Neutrophils (%) (Auto) 58, Lymphocytes (%) (Auto) 28, Monocytes (%) (Auto) 12, Eosinophils (%) (Auto) 2, Basophils (%) (Auto) 1, Neutrophils # (Auto) 2.8, Lymphocytes # (Auto) 1.4, Monocytes # (Auto) 0.6, Eosinophils # (Auto) 0.1, Basophils # (Auto) 0.0, Immature Granulocyte # (Auto) 0.0, Percent Immature Platelet Fraction 12.7H, Sodium Level 142, Potassium Level 3.8, Chloride Level 113H, Carbon Dioxide Level 22, Anion Gap 7, Blood Urea Nitrogen 11, Creatinine 0.78, Estimat Glomerular Filtration Rate 96, BUN/Creatinine Ratio 14, Glucose Level 100, Calcium Level 8.6, Corrected Calcium 8.9, Magnesium Level 2.0, Total Bilirubin 1.5H, Aspartate Amino Transf (AST/SGOT) 21, Alanine Aminotransferase (ALT/SGPT) 24, Alkaline Phosphatase 56, Total Protein 5.4L, Albumin 3.6 Microbiology 03/15/23 MRSA Screen - Final, Complete MRSA not isolated Pending Labs Microbiology Date/Time Source Procedure Growth Status 03/15/23 16:20 Nasal MRSA Screen - Final MRSA not isolated Complete Laboratory Tests 03/15/23 20:30: Glucometer 102 03/16/23 04:32: White Blood Count 5.3, Red Blood Count 4.02, Hemoglobin 13.7, Hematocrit 39, Mean Corpuscular Volume 97, Mean Corpuscular Hemoglobin 34, Mean Corpuscular Hemoglobin Concent 35, Red Cell Distribution Width 12.1, Platelet Count 104, Mean Platelet Volume 12.6, Immature Granulocyte % (Auto) 0, Neutrophils (%) (Auto) 58, Lymphocytes (%) (Auto) 30, Monocytes (%) (Auto) 10, Eosinophils (%) (Auto) 1, Basophils (%) (Auto) 1, Neutrophils # (Auto) 3.0, Lymphocytes # (Auto) 1.6, Monocytes # (Auto) 0.5, Eosinophils # (Auto) 0.1, Basophils # (Auto) 0.1, Immature Granulocyte # (Auto) 0.0, Percent Immature Platelet Fraction 12.1, Sodium Level 140, Potassium Level 3.6, Chloride Level 110, Carbon Dioxide Level 23, Anion Gap 7, Blood Urea Nitrogen 10, Creatinine 0.82, Estimat Glomerular Filtration Rate 94, BUN/Creatinine Ratio 12, Glucose Level 89, Calcium Level 8.5, Corrected Calcium 8.9, Phosphorus Level 2.8, Magnesium Level 1.8, Total Bilirubin 1.7, Aspartate Amino Transf (AST/SGOT) 23, Alanine Aminotransferase (A LT/SGPT) 26, Alkaline Phosphatase 55, Total Protein 5.2, Albumin 3.5, Triglycerides Level 95, Cholesterol Level 101, LDL Cholesterol Direct 46, VLDL Cholesterol 19, HDL Cholesterol 41, Smear Scan YES 03/16/23 05:25: Glucometer 87 03/16/23 10:38: Glucometer 102 03/17/23 05:19: White Blood Count 4.9, Red Blood Count 4.15, Hemoglobin 13.8, Hematocrit 40, Mean Corpuscular Volume 96, Mean Corpuscular Hemoglobin 33, Mean Corpuscular Hemoglobin Concent 35, Red Cell Distribution Width 12.3, Platelet Count 104, Mean Platelet Volume 12.7, Immature Granulocyte % (Auto) 0, Neutrophils (%) (Auto) 58, Lymphocytes (%) (Auto) 28, Monocytes (%) (Auto) 12, Eosinophils (%) (Auto) 2, Basophils (%) (Auto) 1, Neutrophils # (Auto) 2.8, Lymphocytes # (Auto) 1.4, Monocytes # (Auto) 0.6, Eosinophils # (Auto) 0.1, Basophils # (Auto) 0.0, Immature Granulocyte # (Auto) 0.0, Percent Immature Platelet Fraction 12.7, Sodium Level 142, Potassium Level 3.8, Chloride Level 113, Carbon Dioxide Level 22, Anion Gap 7, Blood Urea Nitrogen 11, Creatinine 0.78, Estimat Glomerular Filtration Rate 96, BUN/Creatinine Ratio 14, Glucose Level 100, Calcium Level 8.6, Corrected Calcium 8.9, Magnesium Level 2.0, Total Bilirubin 1.5, Aspartate Amino Transf (AST/SGOT) 21, Alanine Aminotransferase (ALT/SGPT) 24, Alkaline Phosphatase 56, Total Protein 5.4, Albumin 3.6 Discharge Home Medications: Active Scripts Active Aspirin EC (Aspirin) 81 Mg Tablet.dr 81 Mg PO DAILY Atorvastatin Calcium 80 Mg Tablet 80 Mg PO DAILY Clopidogrel (Clopidogrel Bisulfate) 75 Mg Tablet 75 Mg PO DAILY Reported Loratadine 10 Mg Tablet 10 Mg PO DAILY PRN Flonase Allergy Relief (Fluticasone Propionate) 50 Mcg/Actuation [place].susp 1-2 [place] NSEACH DAILY PRN Multivitamin 1 Each Tablet 1 Each PO DAILY Probiotic (Lactobacillus Acidophilus) 10 Billion Cell Capsule 1 Each PO DAILY Sotalol (Sotalol HCl) 120 Mg Tablet 120 Mg PO BID Finasteride 5 Mg Tablet 5 Mg PO DAILY Instructions to patient/family Please see electronic discharge instructions given to patient. NAIDA GUIDRY DO Mar 17, 2023 13:15
--- NOTE | 2023-03-17 13:33 | Progress Note - Cardiology ---
Cardiology SOAP Progress Note Subjective: No cp or palp or syncope or shortness of breath No n/v/d No focal weakness No leg swelling Objective: I&O/Vital Signs 03/17/23 03/17/23 03/17/23 03/17/23 03:37 07:57 08:44 09:00 Temp 36.5 36.8 Pulse 59 57 Resp 16 20 B/P (MAP) 104/67 (79) 124/73 (90) Pulse Ox 98 100 99 O2 Delivery Room Air Room Air Room Air Room Air O2 Flow Rate 0.00 0.00 0.00 03/17/23 11:26 Temp 36.3 Pulse 58 Resp 18 B/P (MAP) 148/88 (108) Pulse Ox 99 O2 Delivery Room Air 03/17/23 00:00 Intake Total 850 ml Output Total 600 ml Balance 250 ml Constitutional: AAO x 3, well-developed, well-nourished Respiratory: No accessory muscle use; chest expansion is symmetric, chest is bilaterally symmetric, other (good, bilateral air entry) Cardiovascular: No regular rate-rhythm; S1 and S2, systolic murmur (soft ARPITA at card base) Gastrointestional: No tender; soft; No guarding, No rebound; audible bowel sounds Extremities: No clubbing, No cyanosis, No significant edema Neurologic/Psychiatric: oriented x 3, other (moves all limbs equally) Skin: normal color, warm/dry; No cyanosis, No cool, No diaphoresis, No rash on exposed areas, No ulcerations on exposed areas Results/Procedures: Labs Laboratory Tests 03/17/23 05:19: White Blood Count 4.9, Red Blood Count 4.15L, Hemoglobin 13.8, Hematocrit 40, Mean Corpuscular Volume 96, Mean Corpuscular Hemoglobin 33, Mean Corpuscular Hemoglobin Concent 35, Red Cell Distribution Width 12.3, Platelet Count 104L, Mean Platelet Volume 12.7H, Immature Granulocyte % (Auto) 0, Neutrophils (%) (Auto) 58, Lymphocytes (%) (Auto) 28, Monocytes (%) (Auto) 12, Eosinophils (%) (Auto) 2, Basophils (%) (Auto) 1, Neutrophils # (Auto) 2.8, Lymphocytes # (Auto) 1.4, Monocytes # (Auto) 0.6, Eosinophils # (Auto) 0.1, Basophils # (Auto) 0.0, Immature Granulocyte # (Auto) 0.0, Percent Immature Platelet Fraction 12.7H, Sodium Level 142, Potassium Level 3.8, Chloride Level 113H, Carbon Dioxide Level 22, Anion Gap 7, Blood Urea Nitrogen 11, Creatinine 0.78, Estimat Glomerular Filtration Rate 96, BUN/Creatinine Ratio 14, Glucose Level 100, Calcium Level 8.6, Corrected Calcium 8.9, Magnesium Level 2.0, Total Bilirubin 1.5H, Aspartate Amino Transf (AST/SGOT) 21, Alanine Aminotransferase (ALT/SGPT) 24, Alkaline Phosphatase 56, Total Protein 5.4L, Albumin 3.6 Microbiology 03/15/23 MRSA Screen - Final, Complete MRSA not isolated Laboratory Tests 03/16/23 04:32 03/17/23 05:19 A/P: Assessment: Mental status change, acute - Transient global amnesia syndrome vs TIA vs CVA - managed by Dr Bailon H/o cardiac arrhythmia - 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 - H/o ablation of another fast heart rhythm in a few years ago (pt and family do not know any details) - H/o pacemaker defibrillator in a few years ago (pt and family do not know any details) - No h/o cardiomyopathy or cor stents or cor bypass surgery, per patient report - Echo of 03/16/23: LVEF 60-65%, no wall motion abnormality, moderately dilated right heart and inferior vena cava, mild MR, mod TR, PASP 40-45 mmHg - ?RV dysplasia (based on echo findings and h/o ICD) - have not able to get re cords from [facility]: * We advise continuation of previous cardiac regimen * We are still trying to obtain cardiac records from patient's rolls baker in [place] * Monitor labs * Advised f/u with his regular rolls baker upon d/c KALLIE FARFAN MD [facility] CCDS Mar 17, 2023 13:33
--- NOTE | 2023-03-17 16:25 | Progress Note ---
WEN ENRIQUEZ 03/17/23 1625: Progress Note Hospital course: 72-year-old male became confused and felt unwell while [place]. Had increasing confusion and amnesia and presented to [facility] in sable condition where he received a CT scan and blood work that showed no abnormalities or evidence of confusion. He ultimately transferred to [facility] for CT angiogram & MRI. CT angiogram showed no evidence of large thrombus and carotid ultrasound showed no evidence of stenosis. MRI was unremabrkable and a chest x-ray showed no effusion or pneumothorax. Patient was admitted with acute mental status change and determined to have TIA vs CVA with a history of WPW with prior ablation and pacemaker defibrillator placement 2 years ago. During his hospital stay, the patient was treated with aspirin & clopidogrel per protocol and started to feel better with improvement of his confusion. DEYA GUIDRY DO 03/17/239: Supervisory-Addendum Brief Verification & Attestation Participated in pt care: history, MDM, physical Personally performed: exam, history, MDM, supervision of care Care discussed with: Medical Student Procedures: n/a Results interpretation: Verified all documentation Verification and Attestation of Medical Student E/M Service A medical student performed and documented this service in my presence. I reviewed and verified all information documented by the medical student and made modifications to such information, when appropriate. I personally performed the physical exam and medical decision making. Deya Guidry, Mar 17, 2023,19:49 WEN ENRIQUEZ Mar 17, 2023 16:25 DEYA GUIDRY DO Mar 17, 2023 19:49
[2023-03-18] MEDS ORDERED: FINASTERIDE 5 MG TABLET PO SCH (09:00)
[2023-03-18] MEDS ORDERED: LACTOBACILLUS ACIDOPHILUS (PROBIOTIC) CAPSULE PO SCH (09:00)
[2023-03-18] MEDS ORDERED: MULTIVIT W/MINERALS TAB (THERAGRAN M) PO SCH (09:00)
== END 2023-03-17 14:08 | disposition home or self-care (01) ==
LOC: ICU 15:53 → UNDOADMOB 15:53 → ICU 16:08 → 4TH 03-16 14:30 → ICU 03-16 14:30 → UNDODISOB 03-17 14:08
PROVIDERS: ADMIT Internal Medicine; ATTEND Internal Medicine
DX: G45.9 Transient cerebral ischemic attack, unspecified (principal); Z86.79 Personal history of other diseases of the circulatory system; Z87.891 Personal history of nicotine dependence
CPT/HCPCS: 70496; 70498; 70551; 71045; 80053 ×2; 80061; 82947 ×2; 83735 ×2; 84100; 85025 ×2; 87081; 93880; 94664; 94760; 96361; 96366; 96372 ×2; 96374; 96375; 97161; C8929; G0378 ×2; G0379; 36415; 93306

== ENCOUNTER 2023-05-25 05:35 | Outpatient (CLI) | payer MEDICARE ==
[~2023-05-25] VITALS: Ht 177.8 cm; Wt 72.7 kg
[~2023-05-25 05:35] MED LIST: ASPI-1238 PO; ATOR40TA70 PO; ATOR80TA76 PO; CLOP75TA28 PO; FINA5TAB6 PO; FLUT9.9S NSEACH; LACT1CAP62 PO; LORA10TA7 PO; MULT-1136 PO; SOTA120T PO
[2023-05-25] MEDS ORDERED: TMSL.4C PO (10:26)
== END 2023-05-25 10:41 | disposition home or self-care (01) ==
LOC: PREOP 05:35
PROVIDERS: ATTEND Specialist
DX: Z01.818 Encounter for other preprocedural examination (principal)

== ENCOUNTER 2023-05-28 08:39 | Day surgery (SDC) | payer MEDICARE ==
[~2023-05-28] VITALS: Ht 177.8 cm; Wt 72.7 kg
[~2023-05-28 08:39] MED LIST changes: +TMSL.4C PO
[2023-05-28] MEDS: TETRACAINE 0.5% OPHTH SOLN 4 ML BTL (SINGLE DOSE ONLY) OU PRN ×4 (09:58→10:18)
[2023-05-28] MEDS ORDERED: TIMOLOL 0.5% (CATARACTS) 0.3 ML BTL OU PRN (10:00)
[2023-05-28] MEDS ORDERED: POVIDONE IODINE OPHTH SOLN 5% 30 ML OP ONE (10:00)
[2023-05-28] MEDS ORDERED: LIDOCAINE PF 1% 2 ML VIAL IR PRN (10:00)
[2023-05-28] MEDS ORDERED: MOXIFLOXACIN OPHTH SOLN 5 MG/ML 0.5 ML SYRINGE OP ONE (10:00)
[2023-05-28 10:02] VITALS: BP 128/87
[2023-05-28] MEDS: PHENYLEPHRINE 10% OPHTH SOLN 5 ML BTL OU SCH ×3 (10:05→10:19)
[2023-05-28] MEDS: TROPICAMIDE 1% OPH SOLN (MYDRIACYL) 15 ML BTL OP SCH ×3 (10:05→10:19)
--- NOTE | 2023-05-28 10:07 | Ophthalmologist Pre-Op Note ---
Pre-Operative Progress Note H&P Reviewed The H&P was reviewed, patient examined and no changes noted. Date H&P Reviewed: May 28, 2023 Time H&P Reviewed: 10:07 Pre-Op Dx Cataract, Left Eye INEZ ANTOINE MD May 28, 2023 10:07
[2023-05-28] MEDS ORDERED: MIDAZOLAM INJ 2 MG/2 ML VIAL ONE (10:14)
--- NOTE | 2023-05-28 10:49 | Ophthalmology Operative Report ---
Cataract removal/placement IOL PREOPERATIVE DIAGNOSIS: Cataract Left Eye POSTOPERATIVE DIAGNOSIS: Cataract Left Eye PROCEDURE: Cataract removal and placement of posterior chamber implant, left eye SURGEON: Ajay Antoine ANESTHESIA: Topical with sedation COMPLICATIONS: None ESTIMATED BLOOD LOSS: Minimal DESCRIPTION OF PROCEDURE: After proper informed consent was obtained, the patient, a 72 male, was taken to the Operating Room and the left eye was anesthetized with tetracaine. The left eye was then prepped and draped in the usual manner. A wire lid speculum was placed. A paracentesis was made at the left hand position. Preservative free lidocaine was injected into the anterior chamber followed by viscoelastic. A clear corneal incision was made in the temporal position. A capsulorrhexis was preformed and the central nuclear and cortical material were removed. The posterior capsule was polished and an Scotty 19.5 CNA0T0 was placed into the capsular bag. The residual viscoelastic was aspirated and balanced saline solution was injected into the anterior chamber. Moxifloxacin was injected into the anterior chamber. The wound was checked and found to be water tight. The patient tolerated the procedure well without complications. AJAY ANTOINE MD May 28, 2023 10:49
[2023-05-28 10:59] VITALS: BP 109/79
--- NOTE | 2023-05-28 12:15 | Anesthesia-General Post-Op ---
MAC Patient Condition Mental Status/LOC: Same as Preop Cardiovascular: Satisfactory Nausea/Vomiting: Absent Respiratory: Satisfactory Pain: Controlled Complications: Absent Post Op Complications Complications None Follow Up Care/Instructions Patient Instructions None needed. Anesthesiology Discharge Order Discharge Order Patient is doing well, no complaints, stable vital signs, no apparent adverse anesthesia problems. No complications reported per nursing. MATT HEATON CRNA May 28, 2023 12:15
== END 2023-05-28 11:02 | disposition home or self-care (01) ==
LOC: SDC 08:39
PROVIDERS: ATTEND Specialist
DX: H25.9 Unspecified age-related cataract (principal); Z87.891 Personal history of nicotine dependence
CPT/HCPCS: 66984; V2632

== ENCOUNTER 2023-06-03 08:03 | Outpatient (CLI) | payer MEDICARE ==
[~2023-06-03] VITALS: Ht 178 cm; Wt 72.7 kg
== END 2023-06-03 14:57 | disposition home or self-care (01) ==
LOC: PREOP 08:03
PROVIDERS: ATTEND Specialist
DX: Z01.818 Encounter for other preprocedural examination (principal)

== ENCOUNTER 2023-06-11 09:27 | Day surgery (SDC) | payer MEDICARE ==
[~2023-06-11] VITALS: Ht 178 cm; Wt 72.7 kg
[2023-06-11] MEDS ORDERED: TETRACAINE 0.5% OPHTH SOLN 4 ML BTL (SINGLE DOSE ONLY) OU PRN (09:30)
[2023-06-11] MEDS ORDERED: POVIDONE IODINE OPHTH SOLN 5% 30 ML OP ONE (09:30)
[2023-06-11] MEDS ORDERED: MOXIFLOXACIN OPHTH SOLN 5 MG/ML 0.5 ML SYRINGE OP ONE (09:30)
[2023-06-11] MEDS ORDERED: TIMOLOL 0.5% (CATARACTS) 0.3 ML BTL OU PRN (09:30)
[2023-06-11 09:41] VITALS: BP 134/74
[2023-06-11] MEDS: TROPICAMIDE 1% OPH SOLN (MYDRIACYL) 15 ML BTL OP SCH ×3 (09:44→09:58)
[2023-06-11] MEDS: PHENYLEPHRINE 10% OPHTH SOLN 5 ML BTL OU SCH ×3 (09:44→09:58)
[2023-06-11] MEDS ORDERED: TETRACAINE 0.5% OPHTH SOLN 5 ML BTL OP SCH (09:45)
[2023-06-11] MEDS: TETRACAINE 0.5% OPHTH SOLN 5 ML BTL OU PRN ×2 (09:52→09:58)
--- NOTE | 2023-06-11 10:01 | Ophthalmologist Pre-Op Note ---
Pre-Operative Progress Note H&P Reviewed The H&P was reviewed, patient examined and no changes noted. Date H&P Reviewed: Jun 11, 2023 Time H&P Reviewed: 10:01 Pre-Op Dx Cataract, Right Eye INEZ ANTOINE MD Jun 11, 2023 10:01
[2023-06-11] MEDS ORDERED: MIDAZOLAM INJ 2 MG/2 ML VIAL ONE (10:04)
[2023-06-11] MEDS ORDERED: LIDOCAINE PF 1% 2 ML VIAL IJ ONE (10:15)
--- NOTE | 2023-06-11 10:21 | Ophthalmology Operative Report ---
Cataract removal/placement IOL PREOPERATIVE DIAGNOSIS: Cataract Right Eye POSTOPERATIVE DIAGNOSIS: Cataract Right Eye PROCEDURE: Cataract removal and placement of posterior chamber implant, right eye SURGEON: Ajay Antoine ANESTHESIA: Topical with sedation COMPLICATIONS: None ESTIMATED BLOOD LOSS: Minimal DESCRIPTION OF PROCEDURE: After proper informed consent was obtained, the patient, a 72 male, was taken to the Operating Room and the right eye was anesthetized with tetracaine. The right eye was then prepped and draped in the usual manner. A wire lid speculum was placed. A paracentesis was made at the left hand position. Preservative free lidocaine was injected into the anterior chamber followed by viscoelastic. A clear corneal incision was made in the temporal position. A capsulorrhexis was preformed and the central nuclear and cortical material were removed. The posterior capsule was polished and Scotty 19.0 CNA0T0 IOL was placed into the capsular bag. The residual viscoelastic was aspirated and balanced saline solution was injected into the anterior chamber. Moxifloxacin was injected into the anterior chamber. The wound was checked and found to be water tight. The patient tolerated the procedure well without complications. AJAY ANTOINE MD Jun 11, 2023 10:21
[2023-06-11 10:28] VITALS: BP 134/74
--- NOTE | 2023-06-11 12:46 | Anesthesia-General Post-Op ---
MAC Patient Condition Mental Status/LOC: Same as Preop Cardiovascular: Satisfactory Nausea/Vomiting: Absent Respiratory: Satisfactory Pain: Controlled Complications: Absent Post Op Complications Complications None Follow Up Care/Instructions Patient Instructions None needed. Anesthesiology Discharge Order Discharge Order Patient is doing well, no complaints, stable vital signs, no apparent adverse anesthesia problems. No complications reported per nursing. FAUZAI LONG CRNA Jun 11, 2023 12:46
== END 2023-06-11 10:35 | disposition home or self-care (01) ==
LOC: SDC 09:27
PROVIDERS: ATTEND Specialist
DX: H25.9 Unspecified age-related cataract (principal); Z87.891 Personal history of nicotine dependence
CPT/HCPCS: 66984; V2632